=== PATIENT | female | born 1985 | race Caucasian/White ===

== ENCOUNTER 2024-08-06 04:06 | Day surgery (SDC) | payer OTHER ==
[~2024-08-06] VITALS: Ht 160 cm; Wt 47.0 kg
[2024-08-06] VITALS (242 sets, daily range): BP systolic 106–164; BP diastolic 59–117
--- NOTE | 2024-08-06 07:00 | NUR ---
Arrival & Pre-treatment Patient arrived to the ANR suite, identification and demographics confirmed. Patient to room 7, AAO, ambulatory, vitals obtained, ID/allergy/fall bands placed, changed into hospital gown, EMMA hose, and non-slip socks. Procedure and timeline explained for treatment and discharge. All questions answered and the patient presents no concerns at this time. V/S assessed, call light is near. Dr. Viera telephoned with patient intake information including usage, dose, last dose/time taken and initial vital signs. Patient history and allergies reviewed with MD. Orders received for 10mg PO Valium and 0.2mg PO Clonidine now. Will reassess per protocol and update MD with assessment and vitals.
[2024-08-06] MEDS ORDERED: LACTATED RINGER'S 1,000 ML IV PRN ×3 (07:30→19:00)
[2024-08-06] MEDS ORDERED: PANTOPRAZOLE SODIUM Sesquihydr 40 MG/TAB PO PRN (07:30)
[2024-08-06] MEDS ORDERED: cloNIDine HCL 0.1 MG/TAB PO PRN (07:30)
[2024-08-06] MEDS ORDERED: diazePAM 5 MG/TAB PO PRN ×2 (07:30→08:30)
[2024-08-06] MEDS ORDERED: ALBUTEROL SULFATE 2.5 MG VIAL IN PRN (07:30)
[2024-08-06] MEDS ORDERED: CYANOCOBALAMIN 500 MCG/TAB ( B12) PO PRN (07:30)
[2024-08-06] MEDS ORDERED: SCOPOLAMINE 1.5 MG DIS TD PRN (07:30)
[2024-08-06] MEDS ORDERED: FAMOTIDINE 20 MG/TAB PO PRN (07:30)
--- NOTE | 2024-08-06 07:30 | NUR ---
Patient medicated per MD orders. In addition to Clonidine and Valium, patient received 1000 mcg B12 PO, 20 mg Pepcid PO, and Scopolamine TD patch. Medication indication and education provided prior to adminstration.
[2024-08-06] MEDS ORDERED: ASCORBIC ACID 4,000 MG in SODIUM CHLORIDE 0.9% 1,000 ML IV SCH (08:00)
[2024-08-06 08:51] LABS: BASO% 0.5 % (0-3); EOS% 2.6 % (0-8); HEMATOCRIT 34.9 % (37.0-47.0); HEMOGLOBIN 11.2 g/dl (12.0-16.0); IMMATURE GRANULOCYTES 0.2 % (0.0-5.0); LYMPH% 34.2 % (15-41); MEAN CELL VOLUME 97.5 fL CALC (80.0-100.0); MEAN CORPUSCULAR HGB 31.3 pG CALC (26.0-32.0); MEAN CORPUSCULAR HGB CONC 32.1 g/dL CAL (32.0-36.0); MONO% 10.8 % (2-13); NEUT# 2.16 thou/uL (2.00-7.15); NEUT% 51.7 % (42-76); RED BLOOD COUNT 3.58 mill/uL (4.20-5.60); RED CELL DISTRI WIDTH 13.5 % (11.5-15.5)
[2024-08-06 08:59] LABS: ALBUMIN 3.5 g/dL (3.2-5.0); BILIRUBIN, TOTAL 0.4 mg/dL (0.02-1.3); CREATININE 0.6 mg/dL (0.5-1.0); POTASSIUM 3.8 mmol/l (3.5-5.1); TOTAL PROTEIN 6.2 g/dL (6.3-8.2)
--- NOTE | 2024-08-06 09:00 | NUR ---
Patients vital signs within pre-treatment parameters for 1.5 hour recheck. No indication for additional Valium or Clonidine as patient is resting comfortably and vital signs are within range.
[2024-08-06] MEDS ORDERED: POTASSIUM CHLORIDE 10 MEQ/50 ML BAG IV PRN (09:15)
[2024-08-06] MEDS ORDERED: cloNIDine HYDROCHLORIDE 100 MCG/ML 10 ML INJ IV PRN (09:15)
[2024-08-06] MEDS ORDERED: PROPOFOL 10 MG/ML 100ML VIAL IV PRN (09:15)
[2024-08-06] MEDS ORDERED: diazePAM 5 MG/TAB VT PRN (09:15)
[2024-08-06] MEDS ORDERED: DEXAMETHASONE SODIUM PHOSPHATE PF 10 MG/ML SDV IV PRN ×2 (09:15→19:00)
[2024-08-06] MEDS ORDERED: THIAMINE HCL 100 MG/ML 2ML VIAL IV PRN (09:15)
[2024-08-06] MEDS ORDERED: ROCURONIUM BROMIDE 10 MG/ML 5ML VIAL IV PRN (09:15)
[2024-08-06] MEDS ORDERED: NALTREXONE HCL 50 MG/TAB VT PRN (09:15)
[2024-08-06] MEDS ORDERED: MAGNESIUM SULFATE HEPTAHYDRATE 100 ML IV PRN (09:15)
[2024-08-06] MEDS ORDERED: SUCCINYLCHOLINE CHLORIDE 20 MG/ML 10ML VIAL IV PRN (09:15)
[2024-08-06] MEDS ORDERED: LIDOCAINE HCL 1% (10MG/ML) 100 MG/10 ML MDV IV PRN (09:15)
[2024-08-06] MEDS ORDERED: LIDOCAINE HCL 1% (10MG/ML) 100 MG/10 ML MDV VT PRN ×2 (09:15)
[2024-08-06] MEDS ORDERED: OCTREOTIDE ACETATE 100 MCG/VIAL SDV SC PRN (09:15)
[2024-08-06] MEDS ORDERED: STERILE WATER FOR IRRIGATION 1,000 ML BTL IR PRN (09:15)
[2024-08-06] MEDS ORDERED: PROPOFOL 100 ML IV PRN (09:15)
[2024-08-06] MEDS ORDERED: cloNIDine HCL 0.1 MG/TAB VT PRN (09:15)
[2024-08-06] MEDS ORDERED: ONDANSETRON HCl 4 MG/2 ML SDV IV PRN ×3 (09:15→19:00)
[2024-08-06] MEDS ORDERED: DiphenhydrAMINE HCL 50 MG/ML SDV IV PRN (09:15)
[2024-08-06] MEDS ORDERED: MIDAZOLAM HCL 2 MG/2 ML VIAL IV PRN (09:15)
[2024-08-06] MEDS ORDERED: PHENYLEPHRINE HCL 10 MG/ML VIAL ONE (09:23)
[2024-08-06] MEDS ORDERED: SODIUM CHLORIDE 0.9% 250 ML IV ONE (09:25)
--- NOTE | 2024-08-06 10:00 | NUR ---
Induction Note Time out performed at 1000. Patient placed on monitors, Kelli hugger, bilateral wrist restraints applied for ET tube protection. Versed 5mg given IV push at 1001. Lidocaine 100mg given at 1002 IV push followed by Rocoronium 10mg at 1003 IV push and held for 90 seconds. Propofol bolus of 120mg given at 1005 IV push. Succinylcholine 80mg given IV push at 1006. Smooth intubation with 7.5 ETT. Positive CO2. Positive Auscultation for air exchange. Patient placed on ventilator for spontaneous ventilation. Placed on Propofol IV drip at 1007. OG inserted. Positive air on auscultation. Positive gastric content. Stomach washed at this time.
--- NOTE | 2024-08-06 10:25 | NUR ---
OG close note Stomach washed at this time. Naltrexone 50mg with Clonidine 0.3mg via OG tube. OG will be clamped for 45 minutes.
[2024-08-06] MEDS ORDERED: NALTREXONE50 MG PO ×2 (11:04→15:46)
[2024-08-06] MEDS ORDERED: KLONOPIN2 MG PO ×2 (11:04→15:46)
[2024-08-06] MEDS ORDERED: CLONIDINE0.1 MG PO ×2 (11:04→15:46)
--- NOTE | 2024-08-06 11:10 | NUR ---
OG open note OG open at this time. Gastric content draining into drainage bag. OG to drain for 45 minutes. Propofol will be titrated down based on patient.
--- NOTE | 2024-08-06 11:55 | NUR ---
OG close note Stomach washed at this time. Naltrexone 50mg with Clonidine 0.3mg via OG tube. OG will be clamped for 45 minutes.
--- NOTE | 2024-08-06 13:25 | NUR ---
OG close note Stomach washed at this time. Naltrexone 50 mg with Clonidine 0.3 mg via OG tube. OG will be clamped for 45 minutes.
--- NOTE | 2024-08-06 14:55 | NUR ---
OG close note Stomach washed at this time. Naltrexone 25 mg with Clonidine 0.3 mg via OG tube. OG will be clamped for 45 minutes.
[2024-08-06] MEDS ORDERED: SUCRALFATE 1 GM/10 ML SUS PO SCH (17:00)
--- NOTE | 2024-08-06 17:05 | NUR ---
Extubation note Closing medications given Benadryl 50mg IV push, Decadron 10mg IV push,Magnesium 4 grams IV, Zofran 8mg IV push, Octreotide 100mcg SC. Stomach washed out prior to extubation. Suctioned gastric content. OG removed. Patient extubated. Propofol Discontinued. Wrist restraints removed. Kelli hugger Removed. See ANR Moderate sedate recovery record for further notes and assessment.
--- NOTE | 2024-08-06 17:20 | NUR ---
Patient's support person (SP) telephoned with update. All questions answered, no concerns presented at this time. SP agreeable to POC.
--- NOTE | 2024-08-06 17:40 | NUR ---
Transfer Note Patient transferred to medical-surgical unit private room. Report given to primary nurse at bedside. Head to toe assessment, treatment, medications, I/O, IV access reviewed with primary nurse. All questions answered. IVF to continue at 100 ml/hr, NC @ 2L, no adventitious breath sounds. Safety precautions in place, bed locked and in lowest position, call light in reach. Handoff of care complete at this time.
--- NOTE | 2024-08-06 17:54 | NUR ---
patient arrived to ms from anr bedside report given from [facility]; patient on 2l of 02; breathing unlabored; vitals stables; personal items in anr locker; LR running on right groin @100; eye covering is applied; no s.s of distress; pepe hugger applied in bed; call light within reach; bed in lowest postion;safety measures in place
--- NOTE | 2024-08-06 18:53 | NUR ---
patient was assisted to bsc with advertising copywriter and riveting machine operator automatic
[2024-08-06] MEDS ORDERED: PROMETHAZINE HCL 12.5 MG in SODIUM CHLORIDE 0.9% 50 ML IV PRN (19:00)
[2024-08-06] MEDS ORDERED: KETOROLAC TROMETHAMINE 30 MG/ML SDV IV PRN (19:00)
[2024-08-06] MEDS ORDERED: ACETAMINOPHEN 500 MG TAB PO PRN (19:00)
[2024-08-06] MEDS ORDERED: ACETAMINOPHEN 1,000 MG/100 ML VIAL IV PRN (19:00)
[2024-08-06] MEDS ORDERED: HALOPERIDOL LACTATE 5 MG/ML SDV IV PRN (19:00)
[2024-08-06] MEDS ORDERED: PROMETHAZINE HCL 25 MG in SODIUM CHLORIDE 0.9% 50 ML IV PRN (19:00)
[2024-08-06] MEDS ORDERED: LORazepam 2 MG/ML IV PRN ×2 (19:00)
[2024-08-06] MEDS ORDERED: PATIENT' OWN MED CONTROLLED 1 EA DOSE IV PRN (21:00)
[2024-08-06] MEDS ORDERED: clonazePAM 1 MG/TAB PO PRN (23:00)
[2024-08-06] MEDS ORDERED: cloNIDine HCL 0.1 MG/TAB PO SCH (23:00)
--- NOTE | 2024-08-07 | NUR ---
ADMINSITERED SCHEDULED MEDS PER EMAR. PT TOLERATED WELL. AROUSABLE TO SPEECH. A/OX2 TO SELF AND PLACE. PT ABLE TO MAKE NEEDS KNOWN. DENIES ANY N/V/P AT THIS TIME. VSS. NO S/S OF DISTESS. IVF RUNNING PER EMAR. BED ALARM ON AND SAFETY PRECAUTIONS IN PLACE.
[2024-08-07 03:24] VITALS: BP 132/71
[2024-08-07] MEDS ORDERED: clonazePAM 1 MG/TAB PO PRN ×2 (04:00→08:00)
[2024-08-07] MEDS ORDERED: NALTREXONE HCL 50 MG/TAB PO SCH (04:00)
[2024-08-07] MEDS ORDERED: cloNIDine HCL 0.1 MG/TAB PO PRN (04:00)
--- NOTE | 2024-08-07 04:00 | NUR ---
SCHEDULED MEDS ADMINSITERED PER EMAR. PT TOLERATED WELL. PT IS A/OX2 TO SELF AND PLACE, ABLE TO MAKE NEEDS KNOWN. PT HAS BEEN USING BSC WITH X1 ASSIST TO STAND AND PIVOT. VOIDS W/O DIFFICULTY. PT LAYING IN BED AT THIS TIME ON RT SIDE, RM AIR, IVF RUNNING PER EMAR. VSS. NO S/S OF DISTRESS. BED ALARM ON AND SAFETY PRECAUTIONS IN PLACE.
[2024-08-07 05:08] LABS: BASO% 0.3 % (0-3); EOS% 0.1 % (0-8); HEMOGLOBIN 11.6 g/dl (12.0-16.0); IMMATURE GRANULOCYTES 0.3 % (0.0-5.0); LYMPH% 10.5 % (15-41); MEAN CELL VOLUME 95.5 fL CALC (80.0-100.0); MEAN CORPUSCULAR HGB 30.8 pG CALC (26.0-32.0); MEAN CORPUSCULAR HGB CONC 32.2 g/dL CAL (32.0-36.0); MONO% 5.9 % (2-13); NEUT# 6.02 thou/uL (2.00-7.15); NEUT% 82.9 % (42-76); RED BLOOD COUNT 3.77 mill/uL (4.20-5.60); RED CELL DISTRI WIDTH 13.1 % (11.5-15.5)
[2024-08-07 05:14] LABS: ALBUMIN 3.6 g/dL (3.2-5.0); BILIRUBIN, TOTAL 0.5 mg/dL (0.02-1.3); CREATININE 0.7 mg/dL (0.5-1.0); MAGNESIUM 2.2 mg/dL (1.6-2.3); TOTAL PROTEIN 6.3 g/dL (6.3-8.2)
[2024-08-07 08:00] VITALS: BP 133/82
[2024-08-07] MEDS ORDERED: ACETAMINOPHEN 325 MG/TAB PO SCH (08:00)
[2024-08-07] MEDS ORDERED: cloNIDine HCL 0.1 MG/TAB PO SCH (08:00)
[2024-08-07] MEDS ORDERED: PANTOPRAZOLE SODIUM Sesquihydr 40 MG/TAB PO SCH (08:00)
--- NOTE | 2024-08-07 08:00 | NUR ---
ASSUMED CARE OF THE PATIENT AT THIS TIME. PATIENT RESTING WITH NO DISTRESS AND NO C/O PAIN. PATIENT PROVIDED MORNING MEDICATIONS ORDERED. PATIENT REMAINS VERY SLEEPY AND DISINTERESTED IN BREAKFAST. FOOD AND DRINK OFFERED AND PROVIDED.
[2024-08-07] MEDS ORDERED: ACETAMINOPHEN 500 MG TAB PO PRN (09:00)
[2024-08-07] MEDS ORDERED: MAGNESIUM OXIDE 400 MG/TAB PO PRN (09:00)
[2024-08-07] MEDS ORDERED: Cholecalciferol 2,000 UNIT/TAB PO PRN (09:00)
[2024-08-07 09:28] VITALS: BP 133/82
[2024-08-07] MEDS ORDERED: POTASSIUM CHLORIDE 20 MEQ/TAB PO SCH (09:30)
--- NOTE | 2024-08-07 09:47 | NUR ---
SN CONTACTED DONOVAN MULLINS WITH RESULTS OF THE MORNINGS LAB WORK. PATIENT ORDERED 40 MEQ FOR POTASSIUM REPLACEMENT. K IS 4.0 THIS AM. POTASSIUM TO BE PROVIDED AND LUNCH TIME SO PATIENT HAS SOMETHING IN HER STOMACH.
--- NOTE | 2024-08-07 11:31 | NUR ---
PATIENT REMAINS SOMULANT. PATIENT ASLEEP IN BED. SN WILL ATTEMPT TO GET PATIENT UP WHEN LUNCH TRAY ARRIVES.
--- NOTE | 2024-08-07 13:30 | NUR ---
PATIENT REMAINS SOMULANT. NURSING STAFF HAVE ATTEMPTED MULTIPLE TIMES TO GET THE PATIENT IN THE SHOWER, TO EAT AND TAKE IN ORAL FLUIDS. ALL PATIENT WANTS TO DUE IS SLEEP. V/S REMAIN STABLE. PATIENT IN NO DISTRESS.
--- NOTE | 2024-08-07 14:38 | NUR ---
PATIENT IS TO REMAIN IN THE HOSPITAL FOR ANOTHER NIGHT. PATIENT STILL RECIEVING IV FLUIDS, LR @100ML/HR. SN STILL ENCOURAGING PATIENT TO TAKE IN FLUIDS.
--- NOTE | 2024-08-07 16:15 | NUR ---
SN AND REAL ESTATE CONSULTANT MOVED PATIENT TO ROOM 269. VERBAL REPORT GIVEN TO RECIEVING NURSE ON MED SURG.V/S REMAIN STABLE. PATIENT STILL SLEEPING.
[2024-08-07 19:03] VITALS: BP 117/68
[2024-08-08 04:13] VITALS: BP 124/73
[2024-08-08] MEDS ORDERED: NALTREXONE HCL 50 MG/TAB PO SCH (06:30)
[2024-08-08] MEDS ORDERED: cloNIDine HCL 0.1 MG/TAB PO SCH (06:30)
[2024-08-08 06:50] VITALS: BP 122/77
--- NOTE | 2024-08-08 07:45 | NUR ---
PT LAYING IN BED RESTING WITH EYES CLOSED, AROUSES EASILY TO VERBAL STIMULI, PT IS A&O X3, RESP. EVEN AND UNLABORED, LUNG SOUNDS ARE CLEAR, NORMAL S1 S2 HEART SOUNDS, ABD DISTENDED AND SOFT, STRONG RADIAL AND PEDAL PULSES, SAFETY MESURES REINFORCED CALL ESCOBAR WITHIN REACH
--- NOTE | 2024-08-08 10:27 | NUR ---
Discharge instructions given. Patient verbalizes understanding of same. Discharged in stable condition via Wheelchair to Home with family. All belongings sent with pt.
== END 2024-08-08 10:27 | disposition home or self-care (01) | DRG 897 ==
LOC: ANR 04:06 → MS2 04:07 → ANR 07:00 → MS2 18:43 → ANR 08-08 10:27
PROVIDERS: ATTEND Anesthesiology
DX: F11.20 Opioid dependence, uncomplicated (principal)
CPT/HCPCS: J1100; J2060; J2354; J3475; J3490